=== PATIENT | male | born 1970 | race Caucasian/White ===

== ENCOUNTER 2023-04-19 16:01 | Emergency (ER) | payer MEDICAID ==
[~2023-04-19] VITALS: Ht 182.9 cm; Wt 123.0 kg
[2023-04-19 16:06] VITALS: O2SAT 100
[2023-04-19] MEDS ORDERED: insulin (16:06)
[2023-04-19] MEDS: SODIUM CHLORIDE 0.9% 1,000 ML IV ONE ×2 (17:10→20:38)
[2023-04-19 17:11] LABS: CLARITY URINE CLEAR (CLEAR); COLOR URINE YELLOW (YELLOW); GLUCOSE URINE 3+ (NEGATIVE); KETONES URINE NEGATIVE (NEGATIVE); LEUKOCYTE ESTERASE URINE 1+ (NEGATIVE); NITRITE URINE NEGATIVE (NEGATIVE); OCCULT BLOOD URINE 2+ (NEGATIVE); PH URINE 5.5 (4.5-8.0); PROTEIN URINE NEGATIVE (NEGATIVE); SPECIFIC GRAVITY URINE 1.032 (1.005-1.030); UROBILINOGEN URINE 0.2 E.U./dL (0.2-1.0)
[2023-04-19] MEDS: SULFAMETHOXAZOLE/TRIMETHOPRIM 800/160MG TABLET PO ONE (17:11)
[2023-04-19 17:38] LABS: BACTERIA URINE 1+; SQUAMOUS EPITHELIAL CELL URINE FEW /lpf (RARE/1+); YEAST URINE 2+
[2023-04-19] MEDS ORDERED: SULF1TAB48 MT (18:35)
[2023-04-19] MEDS: CEFTRIAXONE 1GM PREMIX 50 ML IV ONE (19:15)
[2023-04-19 19:45] LABS: BASOPHILS % 0.5 % (0.0-2.0); EOSINOPHILS % 1.7 % (0.0-5.0); HEMATOCRIT. 38.2 % (42.0-52.0); HEMOGLOBIN. 12.6 g/dL (14.0-18.0); LYMPHOCYTES % 20.1 % (20.0-50.0); MEAN CORPUSCULAR HEMOGLOBIN 27.6 pg (28.0-32.0); MEAN CORPUSCULAR HGB CONC 32.9 g/dL (31.0-37.0); MEAN CORPUSCULAR VOLUME 83.9 fL (80.0-94.0); MEAN PLATELET VOLUME 13.7 fl (7.4-10.4); MONOCYTES % 7.7 % (2.0-8.0); PLATELET 74 x1000/uL (130-400); RED BLOOD CELL COUNT 4.55 mill/uL (4.7-6.1); WHITE BLOOD COUNT 5.2 x1000/uL (4.5-11.0)
[2023-04-19 19:59] LABS: ALANINE AMINOTRANSFERASE 84 IU/L (10-49); ALBUMIN 3.3 g/dL (3.2-4.8); ASPARTATE AMINOTRANSFERASE 118 IU/L (<34); BILIRUBIN TOTAL 0.9 mg/dL (0.1-1.0); CALCIUM 8.7 mg/dL (8.7-10.4); CARBON DIOXIDE 28 mEq/L (21-32); CHLORIDE 97 mEq/L (98-107); CREATININE 0.9 mg/dL (0.6-1.3); POTASSIUM 4.1 mEq/L (3.5-5.1); PROTEIN TOTAL 8.1 g/dL (6.0-8.3); SODIUM 132 mEq/L (136-145); TROPONIN I HIGH SENSITIVITY 30 ng/L (3.0-53); UREA NITROGEN BLOOD 10 mg/dL (9-23)
[2023-04-19 20:03] LABS: GLUCOSE 622 mg/dL (70-105)
[2023-04-19 20:16] LABS: BETA HYDROXYBUTYRATE 1.1 mMol/L (0.0-0.3)
[2023-04-19 20:21] LABS: DIFFERENTIAL COMMENT 1
[2023-04-19] MEDS ORDERED: DEXTROSE 50% WATER 50ML SYRINGE IV PRN (20:30)
[2023-04-19 20:40] VITALS: BP 129/83; PULSE 81; RESP 22; TEMP 97.7
[2023-04-19] MEDS ORDERED: CEPH500T MT (20:47)
[2023-04-19] MEDS: BLOOD SUGAR DIAGNOSTIC STRIP TEST SCH (20:50)
[2023-04-19] MEDS ORDERED: INSULIN LISPRO 100 UNITS/ML SUBCUT SCH (21:00)
[2023-04-19 21:19] LABS: INR 1.1; PROTHROMBIN TIME 12.3 sec (9.6-11.0)
== END 2023-04-19 23:27 | disposition left against medical advice (07) ==
LOC: ER 16:01
DX: E11.65 Type 2 diabetes mellitus with hyperglycemia (principal)
CPT/HCPCS: 80053; 81003; 82010; 82962; 85025; 85610; 87086; 84484; 87077; 36415; 71045; 82803; 96361; 96365; 99284; J7030; Z7610 ×2